=== PATIENT | male | born 1970 | race Caucasian/White ===

== ENCOUNTER 2017-05-02 08:10 | Emergency (ER) | payer MEDICAID ==
[~2017-05-02] VITALS: Ht 149.9 cm; Wt 51.7 kg
[2017-05-02 11:32] VITALS: BP 116/62
== END 2017-05-02 11:32 | disposition home or self-care (01) ==
LOC: ED 08:10
DX: N39.0 Urinary tract infection, site not specified (principal)
CPT/HCPCS: J7030

== ENCOUNTER 2018-06-12 09:52 | Inpatient (IN) | payer MEDICAID ==
[~2018-06-12] VITALS: Ht 165.1 cm; Wt 64.3 kg
[2018-06-12] VITALS (10 sets, daily range): BP systolic 68–94; BP diastolic 34–52
[2018-06-12 11:49] LABS: UA SPECIFIC GRAVITY 1.015 (1.005-1.035); microscopic required? YES; urine erythrocyte 2+ (NEGATIVE)
[2018-06-12 11:52] LABS: PLATELET COUNT 299 x10^3mcL (130-400); RED CELL DISTRIBUTION WIDTH 11.9 % (11.5-14.5)
[2018-06-12 12:02] LABS: CALCIUM 9.3 mg/dL (8.5-10.1); CARBON DIOXIDE 30.9 mmol/L (21-32); CHLORIDE SERUM 107 mmol/L (98-107); GFR1 > 60 mL/min; GLUCOSE SERUM 104 mg/dL (74-106); SODIUM SERUM 141 mmol/L (136-145)
[2018-06-12 12:15] LABS: ALKALINE PHOSPHATASE 126 U/L (46-116); ALT/SGPT 34 U/L (16-63); AMYLASE 72 U/L (25-115); AST/SGOT 30 U/L (15-37); BILIRUBIN TOTAL 0.51 mg/dL (0.20-1.00); LIPASE 112 IU/L (73-393); TOTAL PROTEIN, SERUM 6.9 g/dL (6.4-8.2)
[2018-06-12 12:19] LABS: ALBUMIN 3.2 g/dL (3.4-5.0)
[2018-06-12] MEDS ORDERED: CLONAZEPAM0.5 MG PO (14:28)
[2018-06-12] MEDS ORDERED: GAVILAX17 GM/Dose (14:29)
[2018-06-12] MEDS ORDERED: CRANBERRY500 M1 PO (14:29)
[2018-06-12] MEDS ORDERED: LEVO-T25 MCG GT (14:30)
[2018-06-12] MEDS ORDERED: MELATONIN3 MG PO (14:31)
[2018-06-12] MEDS ORDERED: MULTI-VITAMINS1 TAB (14:31)
[2018-06-12] MEDS ORDERED: EARWAX TREATMEN15 M1 OT (14:32)
[2018-06-12] MEDS ORDERED: COLACE100 MG PO (14:32)
[2018-06-12] MEDS ORDERED: TRILEPTAL600 MG PO (14:34)
[2018-06-12] MEDS ORDERED: LAMICTAL (GREE1 EACH PO (14:34)
[2018-06-12 14:36] LABS: SEGMENTED NEUTROPHILS 38 % (37-75)
[2018-06-12] MEDS ORDERED: LAXATIVE5 M1 PR (14:36)
[2018-06-12 14:37] LABS: BAND NEUTROPHIL 49 % (0-10)
[2018-06-12] MEDS ORDERED: [UNRECOGNIZED DRUG - OTHER] RC (14:37)
[2018-06-12 14:40] LABS: MONOCYTE 5 % (0-7)
[2018-06-12 14:42] LABS: PLATELET MORPHOLOGY PLATELETS NORMAL; rbc morphology (normal/abnorm) NORMAL (NORMAL)
[2018-06-12 15:07] LABS: CHOLESTEROL/HDL RATIO 3.4; MAGNESIUM 2.3 mg/dL (1.8-2.4); PHOSPHOROUS 3.5 mg/dL (2.5-4.9)
[2018-06-12 15:14] LABS: T3 TOTAL 0.51 ng/mL
[2018-06-12 15:18] LABS: FREE T4 0.71 ng/dL (0.76-1.46); FREE THYROXINE INDEX 1.9 ug/dL (1.4-4.5); T4(THYROXINE) 5.9 ug/dL (4.7-13.3)
[2018-06-13] VITALS (7 sets, daily range): BP systolic 84–110; BP diastolic 47–66; Ht 165.1 cm; Wt 64.3 kg
[2018-06-13 05:34] LABS: PLATELET COUNT 239 x10^3mcL (130-400); RED CELL DISTRIBUTION WIDTH 12.2 % (11.5-14.5)
[2018-06-13 05:47] LABS: CARBON DIOXIDE 26.7 mmol/L (21-32); CHLORIDE SERUM 113 mmol/L (98-107); CREATININE SERUM 0.7 mg/dL (0.7-1.3); GFR1 > 60 mL/min; GLUCOSE SERUM 97 mg/dL (74-106); MAGNESIUM 1.9 mg/dL (1.8-2.4); PHOSPHOROUS 3.9 mg/dL (2.5-4.9); POTASSIUM SERUM 3.6 mmol/L (3.5-5.1); SODIUM SERUM 147 mmol/L (136-145)
[2018-06-13 06:33] LABS: ATYPICAL LYMPH 1 %; BAND NEUTROPHIL 8 % (0-10); BASOPHIL 0 % (0-2); MONOCYTE 6 % (0-7); SEGMENTED NEUTROPHILS 82 % (37-75)
[2018-06-13 06:35] LABS: PLATELET MORPHOLOGY PLATELETS NORMAL; rbc morphology (normal/abnorm) ABNORMAL (NORMAL)
[2018-06-13 18:08] LABS: AMPHETAMINE QUAL UR NONE DETECTED (See below)
[2018-06-14] VITALS (7 sets, daily range): BP systolic 94–124; BP diastolic 56–82
[2018-06-14 06:13] LABS: CALCIUM 8.5 mg/dL (8.5-10.1); CARBON DIOXIDE 22.4 mmol/L (21-32); CHLORIDE SERUM 107 mmol/L (98-107); CREATININE SERUM 0.6 mg/dL (0.7-1.3); GFR1 > 60 mL/min; GLUCOSE SERUM 73 mg/dL (74-106); MAGNESIUM 1.7 mg/dL (1.8-2.4); PHOSPHOROUS 2.9 mg/dL (2.5-4.9); POTASSIUM SERUM 3.3 mmol/L (3.5-5.1); SODIUM SERUM 142 mmol/L (136-145)
[2018-06-14 07:07] LABS: BASOPHIL % 0.4 % (0-2); PLATELET COUNT 229 x10^3mcL (130-400); RED CELL DISTRIBUTION WIDTH 12.2 % (11.5-14.5)
[2018-06-15 05:35] VITALS: BP 119/65
[2018-06-15 06:21] LABS: BASOPHIL % 0.3 % (0-2); PLATELET COUNT 253 x10^3mcL (130-400); RED CELL DISTRIBUTION WIDTH 11.7 % (11.5-14.5)
[2018-06-15 06:34] LABS: CARBON DIOXIDE 21.6 mmol/L (21-32); CHLORIDE SERUM 104 mmol/L (98-107); CREATININE SERUM 0.5 mg/dL (0.7-1.3); GFR1 > 60 mL/min; GLUCOSE SERUM 84 mg/dL (74-106); MAGNESIUM 1.5 mg/dL (1.8-2.4); PHOSPHOROUS 2.8 mg/dL (2.5-4.9); POTASSIUM SERUM 3.1 mmol/L (3.5-5.1); SODIUM SERUM 139 mmol/L (136-145)
[2018-06-15 08:33] VITALS: BP 119/68
[2018-06-15 09:01] VITALS: BP 119/68
[2018-06-15 13:10] VITALS: BP 115/73
[2018-06-15 17:30] VITALS: BP 97/64
[2018-06-15 20:38] VITALS: BP 137/80
[2018-06-16 05:44] VITALS: BP 114/75
[2018-06-16 08:44] LABS: BASOPHIL % 0.3 % (0-2); PLATELET COUNT 286 x10^3mcL (130-400); RED CELL DISTRIBUTION WIDTH 11.9 % (11.5-14.5)
[2018-06-16 08:48] LABS: CARBON DIOXIDE 22.2 mmol/L (21-32); CHLORIDE SERUM 106 mmol/L (98-107); CREATININE SERUM 0.5 mg/dL (0.7-1.3); GFR1 > 60 mL/min; GLUCOSE SERUM 70 mg/dL (74-106); SODIUM SERUM 142 mmol/L (136-145)
[2018-06-16 09:00] LABS: POTASSIUM SERUM 2.9 mmol/L (3.5-5.1)
[2018-06-16 09:57] VITALS: BP 108/62
[2018-06-16 13:40] VITALS: BP 122/68
[2018-06-16 17:55] VITALS: BP 104/60
[2018-06-16 21:29] VITALS: BP 134/77
[2018-06-17 05:14] VITALS: BP 131/79
[2018-06-17 07:41] LABS: BASOPHIL % 0.3 % (0-2); PLATELET COUNT 314 x10^3mcL (130-400)
[2018-06-17 07:49] LABS: CALCIUM 8.1 mg/dL (8.5-10.1); CARBON DIOXIDE 21.7 mmol/L (21-32); CHLORIDE SERUM 106 mmol/L (98-107); CREATININE SERUM 0.5 mg/dL (0.7-1.3); GFR1 > 60 mL/min; GLUCOSE SERUM 65 mg/dL (74-106); SODIUM SERUM 143 mmol/L (136-145)
[2018-06-17 08:48] VITALS: BP 93/60
[2018-06-17] MEDS ORDERED: PROA PO (10:47)
[2018-06-17] MEDS ORDERED: MAG PO (10:48)
[2018-06-17] MEDS ORDERED: LEVAQUIN750 MG PO (10:52)
[2018-06-17] MEDS ORDERED: BD LACTINEX1.4 MG PO (10:54)
[2018-06-17 13:09] VITALS: BP 115/78
[2018-06-17 17:05] VITALS: BP 131/84
== END 2018-06-17 17:25 | DRG 720 ==
LOC: ED 09:52 → IC 14:04 → DU 14:04 → IC 19:35 → DU 06-14 22:09
PROVIDERS: Emergency Medicine; Family Medicine
DX: A41.9 Sepsis, unspecified organism (principal); N17.0 Acute kidney failure with tubular necrosis; J69.0 Pneumonitis due to inhalation of food and vomit; R65.21 Severe sepsis with septic shock; E44.0 Moderate protein-calorie malnutrition; G91.9 Hydrocephalus, unspecified; G81.90 Hemiplegia, unspecified affecting unspecified side; N39.0 Urinary tract infection, site not specified; E03.9 Hypothyroidism, unspecified; F73 Profound intellectual disabilities; G40.909 Epilepsy, unspecified, not intractable, without status epilepticus; K52.9 Noninfective gastroenteritis and colitis, unspecified; R80.9 Proteinuria, unspecified; E83.42 Hypomagnesemia; M35.3 Polymyalgia rheumatica; E87.6 Hypokalemia; Z99.3 Dependence on wheelchair; Z68.24 Body mass index [BMI] 24.0-24.9, adult; Z98.2 Presence of cerebrospinal fluid drainage device
CPT/HCPCS: 83880; 84439; J1630; J1642; J1720; J1956; J2060; J2405; J2543; J3475; J3480; J3490; J7030; J7040; J7042; J7620; Q0092

== ENCOUNTER 2020-01-24 09:01 | Emergency (ER) | payer MEDICAID ==
[~2020-01-24] VITALS: Ht 162.6 cm; Wt 52.6 kg
[~2020-01-24 09:01] MED LIST: BD LACTINEX1.4 MG PO; CLONAZEPAM0.5 MG PO; COLACE100 MG PO; CRANBERRY500 M1 PO; EARWAX TREATMEN15 M1 OT; GAVILAX17 GM/Dose; LAMICTAL (GREE1 EACH PO; LAXATIVE5 M1 PR; LEVAQUIN750 MG PO; LEVO-T25 MCG GT; MAG PO; MELATONIN3 MG PO; MULTI-VITAMINS1 TAB; PROA PO; TRILEPTAL600 MG PO; [UNRECOGNIZED DRUG - OTHER] RC
[2020-01-24 09:07] VITALS: BP 106/74; Ht 162.6 cm; Wt 52.6 kg
== END 2020-01-24 11:31 | disposition home or self-care (01) ==
LOC: ED 09:01
DX: L03.115 Cellulitis of right lower limb (principal)
CPT/HCPCS: 85378